=== PATIENT | male | born 1970 | race Caucasian/White ===

== ENCOUNTER 2023-02-11 20:49 | Emergency (ER) | payer SELFPAY ==
[2023-02-11] MEDS ORDERED: Cephalexin 500 MG Cap PO ONE (22:16)
== END 2023-02-11 23:05 | disposition home or self-care (01) ==
LOC: JD.ED 20:49
DX: L30.9 Dermatitis, unspecified (principal); Z88.0 Allergy status to penicillin
CPT/HCPCS: 99283; A9270